=== PATIENT | male | born 1975 | race Caucasian/White ===

== ENCOUNTER 2024-08-08 07:46 | Outpatient (CLI) | payer BC, SELFPAY ==
[2024-08-08 08:11] LABS: Basophils Absolute Auto 0.05 K/mm3 (0.00-0.10); Eosinophils Absolute Auto 0.22 K/mm3 (0.02-0.50); Eosinophils Percent Auto 4.4 % (1.0-6.0); Hematocrit 41.4 % (40.0-54.0); Hemoglobin 14.1 g/dL (14.0-18.0); Immature Granulocyte Absolute 0.01 K/mm3 (0.00-0.00); Immature Granulocyte Percent A 0.2 % (0.0-0.0); Lymphocytes Absolute Auto 2.01 K/mm3 (1.10-4.50); Lymphocytes Percent Auto 39.8 % (18.0-42.0); Mean Corpuscular HGB Conc 34.1 g/dL (32-36); Mean Corpuscular Hemoglobin 30.7 pg (27.0-31.0); Mean Platelet Volume 9.8 fl (8.7-11.0); Monocytes Absolute Auto 0.39 K/mm3 (0.10-0.90); Monocytes Percent Auto 7.7 % (2.0-11.0); Neutrophils Absolute Auto 2.37 K/mm3 (1.70-7.20); Neutrophils Percent Auto 46.9 % (50.0-70.0); Platelet Count Result 225 K/mm3 (150-420); Red Cell Distribution Width 12.7 % (11.6-14.4); White Blood Count 5.1 K/mm3 (4.8-10.8)
[2024-08-08 08:42] LABS: Alanine Aminotransferase 30 U/L (6-50); Alkaline Phosphatase 54 U/L (38-126); Anion Gap 3 mmol/L (4-12); Aspartate Amino Transferase 33 U/L (17-59); Bilirubin,Total 0.7 mg/dL (0.2-1.3); Blood Urea Nitrogen 16 mg/dL (9-20); Carbon Dioxide 26 mmol/L (22-30); Chloride 111 mmol/L (98-107); Cholesterol 188 mg/dL (0-200); Estimated Glomerular Filt Rate > 60; Glucose 89 mg/dL (65-110); HDL Direct 69 mg/dL; LDL Cholesterol Calculated 108 mg/dL (<130); Osmolality Calculated 290 mOsm/kg (285-295); Potassium 4.3 mmol/L (3.4-5.0); Sodium 140 mmol/L (137-145); Total Protein 6.7 g/dL (6.3-8.2); Triglycerides 54 mg/dL (<150)
== END 2024-08-08 07:47 | disposition home or self-care (01) ==
LOC: CHSLAB 07:47
PROVIDERS: PCP Family Medicine; Visit Provider Family Medicine
DX: Z00.00 Encounter for general adult medical examination without abnormal findings (principal); E03.9 Hypothyroidism, unspecified
CPT/HCPCS: 36415; 80053; 80061; 84443; 85025

== ENCOUNTER 2024-08-25 15:02 | Outpatient (NON) | payer BC, SELFPAY ==
--- NOTE | 2024-08-25 | S_PTH ---
PATIENT: Rufino Goodman LOC: [facility]#:[id number] AGE/SX: 49/M ROOM: RE08/25/[address]: Jourdan Mills DO : 1975 BED: DIS: 08/25/2024 SPEC #: [id number] RECD: 08/25/24 17:42 STATUS: PAMELA ANGUIANO #: [id number] GILBERT: 08/25/24 00:[address]: Jourdan Mills DEPT: [facility] Surgical RECD BY: Renita Bernard MLT, ([facility]) Tissues: A - Skin Bx Procedures: Hematoxylin and Eosin Stain Gross and Microscopic Level 4
--- OUTSIDE RECORDS SUMMARY | 2024-08-25 15:06 | XMS_ITS | Clinical Summary ---
Author Organization [facility] [place] [address] Address [address] [place] [address] Care Team Providers Care Manager Nursing Home Name Role Phone Alisson Deluca MD Primary Care Provider [phone] Allergies No known active allergies Medications methylPREDNISolon e (MEDROL DOSEPACK) 4 mg tabletIndications :Cough with fever,Mild intermittent asthma without complication,Bron chitis Take as directed on package. 21 tablet 7 Active Active Problems Problem Noted Date Diagnosed Date Mild intermittent asthma without complication Bronchitis 02/08/2017 Assessment & Plan (02/08/2017 4:48 PM RN ICU): Take your antibiotic as directed You may take a cough suppressant to calm your cough (dayquil, delsym, or nyquil) If your cough is productive or you have tight chest congestion with thick mucus- you can use a cough expectorant like Mucinex Benadryl/Zyrtec can be used to dry up a runny nose along with a nasal spray like azelastine or mometasone.. The use of Chlorpheniramine (antihistamine) plus pseudoephedrine (decongestant) has been proven to be helpful. Avoid environmental triggers and allergen Drink plenty of fluids and get plenty of rest Tylenol/Motrin for pain/fever If you are not better in the next 5 days, follow up w PCP. Surgical History Surgery Date Site/Laterality Comments CARPAL TUNNEL RELEASE Medical History Medical History Date Comments Asthma Social History Tobacco Use Types Packs/Day Years Used Date Smoking Tobacco: Never Smokeless Tobacco: Never Personal Safety Answer Date Recorded Getting School Help Needed Not on file 05/03 Sex and Gender Information Value Date Recorded Sex Assigned at Not on file Legal Sex Male 5:04 PM RN ICU Gender Identity Not on file Sexual Orientation Not on file Obstetrics History Last Filed Vital Signs Vital Sign Reading Time Taken Comments Blood Pressure 112/70 02/08/2017 4:00 PM RN ICU Pulse 68 02/08/2017 4:00 PM RN ICU Temperature 36.6 C (97.9 F) 02/08/2017 4:00 PM RN ICU Respiratory Rate 19 02/08/2017 4:00 PM RN ICU Oxygen Saturation 98% 02/08/2017 4:00 PM RN ICU Inhaled Oxygen Concentration - - Weight 73 kg (161 lb) 02/08/2017 4:00 PM RN ICU Height 167.6 cm (5' 6) 02/08/2017 4:00 PM RN ICU Body Mass Index 25.99 02/08/2017 4:00 PM RN ICU Plan of Treatment Not on file Insurance [facility] Care Teams Manager Nursing Home Relationship Specialty Start Date End Date Alisson Deluca MD [address] [place] [address] PCP - General Surgery 02/08/17
--- OUTSIDE RECORDS SUMMARY | 2024-08-25 15:06 | XMS_ITS | Referral Summary ---
Author Organization [facility] [place] [address] Address [address] [place] [address] Care Team Providers Care Medical Tech Name Role Phone Alisson Deluca MD Primary Care Provider [phone] Allergies No known active allergies Medications methylPREDNISolon e (MEDROL DOSEPACK) 4 mg tabletIndications :Cough with fever,Mild intermittent asthma without complication,Bron chitis Take as directed on package. 21 tablet 7 Active Active Problems Problem Noted Date Diagnosed Date Mild intermittent asthma without complication Bronchitis 02/08/2017 Assessment & Plan (02/08/2017 4:48 PM [employer] FIELD PERSON): Take your antibiotic as directed You may [...] next 5 days, follow up w PCP. Social History Tobacco Use Types Packs/Day Years Used Date Smoking Tobacco: Never Smokeless Tobacco: Never Personal Safety Answer Date Recorded Getting School Help Needed Not on file 05/03 Sex and Gender Information Value Date Recorded Sex Assigned at Not on file Legal Sex Male 5:04 PM [employer] FI[employer] PERSON Gender Identity Not on file Sexual Orientation Not on file Last Filed Vital Signs Vital Sign Reading Time Taken Comments Blood Pressure 112/70 02/08/2017 4:00 PM [employer] FIELD PERSON Pulse 68 02/08/2017 4:00 PM ARE[employer] FIELD PERSON Temperature 36.6 C (97.9 F) 02/08/2017 4:00 PM AREA FIELD PERSON Respiratory Rate 19 02/08/2017 4:00 PM AREA FIELD PERSON Oxygen Saturation 98% 02/08/2017 4:00 PM AREA FIELD PERSON Inhaled Oxygen Concentration - - Weight 73 kg (161 lb) 02/08/2017 4:00 PM AREA FIELD PERSON Height 167.6 cm (5' 6) 02/08/2017 4:00 PM ARE[employer] FIELD PERSON Body Mass Index 25.99 02/08/2017 4:00 PM AREA FIELD PERSON Plan of Treatment Not on file Insurance [facility] Care Teams Medical Tech Relationship Specialty Start Date End Date Alisson Deluca MD [address] [place] [address] PCP - General Surgery 02/08/17
== END 2024-08-25 15:03 | disposition home or self-care (01) ==
LOC: CHSLAB 15:04
PROVIDERS: PCP Family Medicine; Visit Provider Family Medicine
DX: L82.1 Other seborrheic keratosis (principal)
CPT/HCPCS: 88305

== ENCOUNTER 2024-09-14 01:44 | Day surgery (SDC) | payer BC, SELFPAY ==
[2024-09-01 13:46] VITALS: BMI 26.6
--- OUTSIDE RECORDS SUMMARY | 2024-09-14 01:46 | XMS_ITS | Data Portability ---
Author Organization [facility] Address [address] [facility] [place] [address] Care Team Providers Care Business Information Analyst Name Role Phone PAULINO ORTIZ Primary Care Provider Assessment No assessment recorded. Plan of Treatment Reminders Order Date Submit Date Provider Last Modified By Organization Details Last Modified Time Details Appointments None recorded. Lab CBC 2022 023 [facility], [address], [place], [address], 3 06:15:30 CMP, serum or plasma 2022 023 [facility], [address], [place], [address], 3 06:15:29 lipid panel, serum 2022 023 [facility], [address], [place], [address], 3 06:15:28 CBC 2020 021 [facility], [address], [place], [address], 1 09:09:47 CMP, serum or plasma 2020 021 [facility], [address], [place], [address], 1 09:09:46 lipid panel, serum 2020 021 [facility], [address], [place], [address], 1 09:09:47 HbA1c (hemoglobi n A1c), blood 2020 021 [place] In-Office Order, Internal Use Only DO Not Attach Compendium DO Not Attach Compendium, Do Not Delete/merge, [id number] 1 11:28:16 CBC 2016 017 [facility], [address] [place] [address], [address], [place], [address], 7 07:12:06 CMP, serum or plasma 2016 017 [facility], [address] [place] [address], [address], [place], [address], 7 07:12:07 lipid panel, serum 2016 017 [facility], [address] [place] [address], [address], [place], [address], 7 07:12:07 Referral None recorded. Procedures None recorded. Surgeries None recorded. Imaging None recorded. Medication Orders levalbuter ol HFA 45 mcg/actuat ion aerosol inhaler 2022 023 [id number], [address] [place], [address], 3 10:32:56 Xopenex HFA 45 mcg/actuat ion aerosol inhaler 2020 021 [facility], [address] [place] [address], [address], 1 10:51:33 Keflex 500 mg capsule 2017 018 [facility], [address] [place] [address], [address], 10:34:21 fluconazol e 200 mg tablet 2017 018 [facility], [address] [place] [address], [address], 10:34:24 Patient TargetsNo targets recorded. Patient Instructions Encounter Date Encounter Id Patient Instructions Last Modified By Organization Details Last Modified Time 08/20/2016 [id number] will come back . jnanney Not available 08/20/2016 16:28:14 06/03/2017 [id number] Urinary Tract Infections (UTI) in Men: Care Instructions jnanney Not available 06/03/2017 17:02:09 05/21/2022 [id number] A healthy lifestyle: care instructions jnanney Not available 05/21/2022 10:32:54 Reason for Referral None Reported. Results Created Date Observation Date Name Description Value Unit Range Abnormal Flag Note LastModifiedBy Organization Detail LastModifiedTime 08/23/19 17 08/23/2016 CBC WBC 5.3 x10e3 /uL 3.4-10 .8 Not Available [facility] ([facility]) [address] [place], [address], 08/23/2016 07:12:06 08/23/19 17 08/23/2016 CBC RBC 4.86 x10e6 /uL 4.14-5 .80 Not Available [facility] ([facility]) [address] [place], [address], 08/23/2016 07:12:06 08/23/19 17 08/23/2016 CBC hemoglobin 15.2 g/dL 12.6-1 7.7 Not Available [facility] ([facility]) [address] [place], [address], 08/23/2016 07:12:06 08/23/19 17 08/23/2016 CBC hematocrit 43.9 % 37.5-5 1.0 Not Available [facility] ([facility]) [address] [place], [address], 08/23/2016 07:12:06 08/23/19 17 08/23/2016 CBC MCV 90 fL 79-97 Not Available [facility] ([facility]) [address] [place], [address], 08/23/2016 07:12:06 08/23/19 17 08/23/2016 CBC MCH 31.3 pg 26.6-3 3.0 Not Available [facility] ([facility]) [address], [place], [address], 08/23/2016 07:12:06 08/23/19 17 08/23/2016 CBC MCHC 34.6 g/dL 31.5-3 5.7 Not Available [facility] ([facility]) [address], [place], [address], 08/23/2016 07:12:06 08/23/19 17 08/23/2016 CBC RDW 13.4 % 12.3-1 5.4 Not Available [facility] ([facility]) [address], [place], [address], 08/23/2016 07:12:06 08/23/19 17 08/23/2016 CBC platelets 262 x10e3 /uL 150-37 9 Not Available [facility] ([facility]) [address], [place], [address], 08/23/2016 07:12:06 08/23/19 17 08/23/2016 CBC neutrophils 56 % Not Avai lable [facility] ([facility]) [address] [place], [address], 08/23/2016 07:12:06 08/23/19 17 08/23/2016 CBC lymphs 33 % Not Available [facility] ([facility]) [address] [place], [address], 08/23/2016 07:12:06 08/23/19 17 08/23/2016 CBC monocytes 8 % Not Availa ble [facility] ([facility]) [address] [place], [address], 08/23/2016 07:12:06 08/23/19 17 08/23/2016 CBC eos 2 % Not Available [facility] ([facility]) [address] [place], [address], 08/23/2016 07:12:06 08/23/19 17 08/23/2016 CBC basos 1 % Not Available [facility] ([facility]) [address] [place], [address], 08/23/2016 07:12:06 08/23/19 17 08/23/2016 CBC immature cells ASSISTANT DESIGNER Not Available [facility] ([facility]) [address], [place], [address], 08/23/2016 07:12:06 08/23/19 17 08/23/2016 CBC neutrophils (absolute) 3.0 x10e3 /uL 1.4-7. 0 Not Available [facility] ([facility]) [address] [place], [address], 08/23/2016 07:12:06 08/23/19 17 08/23/2016 CBC lymphs (absolute) 1.8 x10e3 /uL 0.7-3. 1 Not Available [facility] ([facility]) [address] [place], [address], 08/23/2016 07:12:06 08/23/19 17 08/23/2016 CBC monocytes(ab solute) 0.4 x10e3 /uL 0.1-0. 9 Not Available [facility] ([facility]) [address] [place], [address], 08/23/2016 07:12:06 08/23/19 17 08/23/2016 CBC eos (absolute) 0.1 x10e3 /uL 0.0-0. 4 Not Available [facility] ([facility]) [address] [place], [address], 08/23/2016 07:12:06 08/23/19 17 08/23/2016 CBC baso (absolute) 0.0 x10e3 /uL 0.0-0. 2 Not Available [facility] ([facility]) [address], [address], 08/23/2016 07:12:06 08/23/19 17 08/23/2016 CBC immature granulocytes 0 % Not Available [facility] ([facility]) [address] [place], [address], 08/23/2016 07:12:06 08/23/19 17 08/23/2016 CBC immature grans (abs) 0.0 x10e3 /uL 0.0-0. 1 Not Available [facility] ([facility]) [address] [place], [address], 08/23/2016 07:12:06 08/23/19 17 08/23/2016 CBC NRBC ASSISTANT DESIGNER Not Available [facility] ([facility]) [address] [place], [address], 08/23/2016 07:12:06 08/23/19 17 08/23/2016 CBC hematology comments: ASSISTANT DESIGNER Not Available [facility] ([facility]) [address] [place], [address], 08/23/2016 07:12:06 08/23/19 17 08/23/2016 CMP, serum or plasm a glucose, serum 96 mg/dL 65-99 Not Available [facility] ([facility]) [address] [place], [address], 08/23/2016 07:12:07 08/23/19 17 08/23/2016 CMP, serum or plasm a BUN 23 mg/dL 6-24 Not Available [facility] ([facility]) [address], [place], [address], 08/23/2016 07:12:07 08/23/19 17 08/23/2016 CMP, serum or plasm a creatinine, serum 0.83 mg/dL 0.76-1 .27 Not Available [facility] ([facility]) [address] [place], [address], 08/23/2016 07:12:07 08/23/19 17 08/23/2016 CMP, serum or plasm a eGFR if nonafricn AM 108 mL/mi n/1.7 3 >59 Not Available [facility] ([facility]) [address] [place], [address], 08/23/2016 07:12:07 08/23/19 17 08/23/2016 CMP, serum or plasm a eGFR if africn AM 125 mL/mi n/1.7 3 >59 Not Available [facility] ([facility]) [address] [place], [address], 08/23/2016 07:12:07 08/23/19 17 08/23/2016 CMP, serum or plasm a BUN/creatini ne ratio 28 9-20 above high normal Not Available [facility] ([facility]) [address], [place], [address], 08/23/2016 07:12:07 08/23/19 17 08/23/2016 CMP, serum or plasm a sodium, serum 142 mmol/ L 134-14 4 Not Available [facility] ([facility]) [address] [place], [address], 08/23/2016 07:12:07 08/23/19 17 08/23/2016 CMP, serum or plasm a potassium, serum 5.0 mmol/ L 3.5-5. 2 Not Available [facility] ([facility]) [address] [place], [address], 08/23/2016 07:12:07 08/23/19 17 08/23/2016 CMP, serum or plasm a chloride, serum 103 mmol/ L 96-106 Not Available [facility] ([facility]) [address] [place], [address], 08/23/2016 07:12:07 08/23/19 17 08/23/2016 CMP, serum or plasm a carbon dioxide, total 24 mmol/ L 18-29 Not Available [facility] ([facility]) [address] [place], [address], 08/23/2016 07:12:07 08/23/19 17 08/23/2016 CMP, serum or plasm a calcium, serum 9.8 mg/dL 8.7-10 .2 Not Available [facility] ([facility]) [address] [place], [address], 08/23/2016 07:12:07 08/23/19 17 08/23/2016 CMP, serum or plasm a protein, total, serum 7.5 g/dL 6.0-8. 5 Not Available [facility] ([facility]) [address] [place], [address], 08/23/2016 07:12:07 08/23/1908/23/2016 CMP, serum or plasm a albumin, serum 4.7 g/dL 3.5-5. 5 Not Available [facility] ([facility]) [address] [place], [address], 08/23/2016 07:12:07 08/23/1908/23/2016 CMP, serum or plasm a globulin, total 2.8 g/dL 1.5-4. 5 Not Available [facility] ([facility]) [address] [place], [address], 08/23/2016 07:12:07 08/23/1908/23/2016 CMP, serum or plasm a A/G ratio 1.7 1.2-2. 2 Not Available [facility] ([facility]) [address] [place], [address], 08/23/2016 07:12:07 08/23/19 17 08/23/2016 CMP, serum or plasm a bilirubin, total 0.4 mg/dL 0.0-1. 2 Not Available [facility] ([facility]) [address] [place], [address], 08/23/2016 07:12:07 08/23/19 17 08/23/2016 CMP, serum or plasm a alkaline phosphatase, S 57 IU/L 39-117 Not Available [facility] ([facility]) [address] [place], [address], 08/23/2016 07:12:07 08/23/19 17 08/23/2016 CMP, serum or plasm a AST (SGOT) 27 IU/L 0-40 Not Available [facility] ([facility]) [address] [place], [address], 08/23/2016 07:12:07 08/23/19 17 08/23/2016 CMP, serum or plasm a ALT (SGPT) 25 IU/L 0-44 Not Available [facility] ([facility]) [address] [place], [address], 08/23/2016 07:12:07 08/23/19 17 08/23/2016 lipid panel , serum cholesterol, total 169 mg/dL 100-19 9 Not Available [facility] ([facility]) [address] [place], [address], 08/23/2016 07:12:07 08/23/19 17 08/23/2016 lipid panel , serum triglyceride s 61 mg/dL 0-149 Not Available [facility] ([facility]) [address] [place], [address], 08/23/2016 07:12:07 08/23/19 17 08/23/2016 lipid panel , serum HDL cholesterol 70 mg/dL >39 Not Available [facility] ([facility]) [address] [place], [address], 08/23/2016 07:12:07 08/23/19 17 08/23/2016 lipid panel , serum VLDL cholesterol anita 12 mg/dL 5-40 Not Available [facility] ([facility]) [address] [place], [address], 08/23/2016 07:12:07 08/23/19 17 08/23/2016 lipid panel , serum LDL cholesterol calc 87 mg/dL 0-99 Not Available [facility] ([facility]) [address] [place], [address], 08/23/2016 07:12:07 08/23/19 17 08/23/2016 lipid panel , serum comment: ASSISTANT DESIGNER Not Available [facility] ([facility]) [address] [place], [address], 08/23/2016 07:12:07 08/23/19 17 08/23/2016 lipid panel , serum LDL/HDL ratio 1.2 ratio _unit s 0.0-3. 6 LDL/H DL RATIO MEN WOMEN 1/2 AVG.R ISK 1.0 1.5 AVG.R ISK 3.6 3.2 2X AVG.R ISK 6.2 5.0 3X AVG.R ISK 8.0 6.1 Not Available [facility] ([facility]) [address] [place], [address], 08/23/2016 07:12:07 08/23/19 17 08/23/2016 cardi ovasc ular asses sment panel , serum interpretati on NOTE SUPPL EMENT REPOR T IS AVAIL ABLE. Not Available [facility] ([facility]) [address] [place], [address], 08/23/2016 07:12:08 08/23/19 17 08/23/2016 cardi ovasc ular asses sment panel , serum pdf image . Not Available [facility] ([facility]) [address] [place], [address], 08/23/2016 07:12:08 02/14/20 21 02/14/2021 COMP. METAB OLIC PANEL (14) glucose 87 mg/dL 65-99 Not Available [facility] ([facility]) [address] [place], [address], 02/14/2021 09:09:46 02/14/20 21 02/14/2021 COMP. METAB OLIC PANEL (14) BUN 15 mg/dL 6-24 Not Available [facility] ([facility]) [address] [place], [address], 02/14/2021 09:09:46 02/14/20 21 02/14/2021 COMP. METAB OLIC PANEL (14) creatinine 0.91 mg/dL 0.76-1 .27 Not Available [facility] ([facility]) [address] [place], [address], 02/14/2021 09:09:46 02/14/20 21 02/14/2021 COMP. METAB OLIC PANEL (14) eGFR if nonafricn AM 100 mL/mi n/1.7 3 >59 Not Available [facility] ([facility]) [address] [place], [address], 02/14/2021 09:09:46 02/14/20 21 02/14/2021 COMP. METAB OLIC PANEL (14) eGFR if africn AM 116 mL/mi n/1.7 3 >59 In accor dance with recom menda tions from the NKF-A SN Task force , [facility] is in the proce ss of updat ing its eGFR calcu latio n to the 2020 CKD-E PI creat inine equat ion that estim ates kidne y funct ion witho ut a race varia ble. Not Available [facility] ([facility]) [address] [place], [address], 02/14/2021 09:09:46 02/14/20 21 02/14/2021 COMP. METAB OLIC PANEL (14) BUN/creatini ne ratio 16 9-20 Not Available [facility] ([facility]) [address] [place], [address], 02/14/2021 09:09:46 02/14/20 21 02/14/2021 COMP. METAB OLIC PANEL (14) sodium 140 mmol/ L 134-14 4 Not Available [facility] ([facility]) [address] [place], [address], 02/14/2021 09:09:46 02/14/20 21 02/14/2021 COMP. METAB OLIC PANEL (14) potassium 4.5 mmol/ L 3.5-5. 2 Not Available [facility] ([facility]) [address] [place], [address], 02/14/2021 09:09:46 02/14/20 21 02/14/2021 COMP. METAB OLIC PANEL (14) chloride 103 mmol/ L 96-106 Not Available [facility] ([facility]) [address] [place], [address], 02/14/2021 09:09:46 02/14/20 21 02/14/2021 COMP. METAB OLIC PANEL (14) carbon dioxide, total 24 mmol/ L 20-29 Not Available [facility] ([facility]) [address] [place], [address], 02/14/2021 09:09:46 02/14/20 21 02/14/2021 COMP. METAB OLIC PANEL (14) calcium 9.7 mg/dL 8.7-10 .2 Not Available [facility] ([facility]) [address] [place], [address], 02/14/2021 09:09:46 02/14/20 21 02/14/2021 COMP. METAB OLIC PANEL (14) protein, total 7.0 g/dL 6.0-8. 5 Not Available [facility] ([facility]) [address], [place], [address], 02/14/2021 09:09:46 02/14/20 21 02/14/2021 COMP. METAB OLIC PANEL (14) albumin 4.7 g/dL 4.0-5. 0 Not Available [facility] ([facility]) [address], [place], [address], 02/14/2021 09:09:46 02/14/20 21 02/14/2021 COMP. METAB OLIC PANEL (14) globulin, total 2.3 g/dL 1.5-4. 5 Not Available [facility] ([facility]) [address], [place], [address], 02/14/2021 09:09:46 02/14/20 21 02/14/2021 COMP. METAB OLIC PANEL (14) A/G ratio 2.0 1.2-2. 2 Not Available [facility] ([facility]) [address], [place], [address], 02/14/2021 09:09:46 02/14/20 21 02/14/2021 COMP. METAB OLIC PANEL (14) bilirubin, total 0.4 mg/dL 0.0-1. 2 Not Available [facility] ([facility]) [address], [place], [address], 02/14/2021 09:09:46 02/14/20 21 02/14/2021 COMP. METAB OLIC PANEL (14) alkaline phosphatase 66 IU/L 44-121 Ple ase note refer ence inter luciano leonidas e Not Available [facility] ([facility]) [address], [place], [address], 02/14/2021 09:09:46 02/14/20 21 02/14/2021 COMP. METAB OLIC PANEL (14) AST (SGOT) 20 IU/L 0-40 Not Available [facility] ([facility]) [address], [place], [address], 02/14/2021 09:09:46 02/14/20 21 02/14/2021 COMP. METAB OLIC PANEL (14) ALT (SGPT) 25 IU/L 0-44 Not Available [facility] ([facility]) [address], [place], [address], 02/14/2021 09:09:46 02/14/20 21 02/14/2021 CBC, PLATE LET, NO DIFFE RENTI AL WBC 5.4 x10e3 /uL 3.4-10 .8 Not Available [facility] ([facility]) [address], [place], [address], 02/14/2021 09:09:47 02/14/20 21 02/14/2021 CBC, PLATE LET, NO DIFFE RENTI AL RBC 4.74 x10e6 /uL 4.14-5 .80 Not Available [facility] ([facility]) [address], [place], [address], 02/14/2021 09:09:47 02/14/20 21 02/14/2021 CBC, PLATE LET, NO DIFFE RENTI AL hemoglobin 14.7 g/dL 13.0-1 7.7 Not Available [facility] ([facility]) [address], [place], [address], 02/14/2021 09:09:47 02/14/20 21 02/14/2021 CBC, PLATE LET, NO DIFFE RENTI AL hematocrit 42.4 % 37.5-5 1.0 Not Available [facility] ([facility]) [address], [place], [address], 02/14/2021 09:09:47 02/14/20 21 02/14/2021 CBC, PLATE LET, NO DIFFE RENTI AL MCV 90 fL 79-97 Not Available [facility] ([facility]) [address], [place], [address], 02/14/2021 09:09:47 02/14/20 21 02/14/2021 CBC, PLATE LET, NO DIFFE RENTI AL MCH 31.0 pg 26.6-3 3.0 Not Available [facility] ([facility]) [address], [place], [address], 02/14/2021 09:09:47 02/14/20 21 02/14/2021 CBC, PLATE LET, NO DIFFE RENTI AL MCHC 34.7 g/dL 31.5-3 5.7 Not Available [facility] ([facility]) [address], [place], [address], 02/14/2021 09:09:47 02/14/2002/14/2021 CBC, PLATE LET, NO DIFFE RENTI AL RDW 12.9 % 11.6-1 5.4 Not Available [facility] ([facility]) [address], [place], [address], 02/14/2021 09:09:47 02/14/2002/14/2021 CBC, PLATE LET, NO DIFFE RENTI AL platelets 260 x10e3 /uL 150-45 0 Not Available [facility] ([facility]) [address], [place], [address], 02/14/2021 09:09:47 02/14/20 21 02/14/2021 CBC, PLATE LET, NO DIFFE RENTI AL NRBC ASSISTANT DESIGNER Not Available [facility] ([facility]) [address], [place], [address], 02/14/2021 09:09:47 02/14/20 21 02/14/2021 LIPID PANEL cholesterol, total 202 mg/dL 100-19 9 above high normal Not Available [facility] ([facility]) [address] [place], [address], 02/14/2021 09:09:47 02/14/20 21 02/14/2021 LIPID PANEL triglyceride s 78 mg/dL 0-149 Not Available [facility] ([facility]) [address] [place], [address], 02/14/2021 09:09:47 02/14/20 21 02/14/2021 LIPID PANEL HDL cholesterol 76 mg/dL >39 Not Available [facility] ([facility]) [address] [place], [address], 02/14/2021 09:09:47 02/14/20 21 02/14/2021 LIPID PANEL VLDL cholesterol anita 14 mg/dL 5-40 Not Available [facility] ([facility]) [address] [place], [address], 02/14/2021 09:09:47 02/14/20 21 02/14/2021 LIPID PANEL LDL chol calc ([facility]) 112 mg/dL 0-99 above high normal Not Available [facility] ([facility]) [address] [place], [address], 02/14/2021 09:09:47 02/14/20 21 02/14/2021 LIPID PANEL comment: ASSISTANT DESIGNER Not Available [facility] ([facility]) [address], [place], [address], 02/14/2021 09:09:47 02/14/20 21 02/14/2021 CARDI OVASC ULAR REPOR T interpretati on Note Suppl ement al repor t is avail able. Not Available [facility] ([facility]) [address] [place], [address], 02/14/2021 09:09:48 02/14/20 21 02/14/2021 CARDI OVASC ULAR REPOR T pdf . Not Available [facility] ([facility]) [address] [place], [address], 02/14/2021 09:09:48 02/14/20 21 02/13/2021 HbA1c (hemo globi n A1c), blood HbA1c 5.3 Not Available In-Office Order Internal Use Only DO Not Attach Compendium DO Not Attach Compendium, Do Not Delete/merge, [id number] 02/13/2021 10:50:43 05/22/19 23 05/21/2022 LIPID PANEL cholesterol, total 196.4 mg/dL 140.0- 200.0 Not Available [facility] ([facility]) [address] [place], [address], 05/22/2022 06:15:28 05/22/19 23 05/21/2022 LIPID PANEL triglyceride s 68 mg/dL <=150 Not Available [facility] ([facility]) [address] [place], [address], 05/22/2022 06:15:28 05/22/19 23 05/21/2022 LIPID PANEL HDL cholesterol 63.7 mg/dL 40.0-1 00.0 Not Available [facility] ([facility]) [address] [place], [address], 05/22/2022 06:15:28 05/22/19 23 05/21/2022 LIPID PANEL VLDL cholesterol anita 13.60 mg/dL 5.00-4 0.00 Not Available [facility] ([facility]) [address] [place], [address], 05/22/2022 06:15:28 05/22/19 23 05/21/2022 LIPID PANEL LDL chol calc ([facility]) 120.3 Not Available [facility] ([facility]) [address] [place], [address], 05/22/2022 06:15:28 05/22/19 23 05/21/2022 COMP. METAB OLIC PANEL (14) glucose 96 mg/dL 65-99 ANION GP 20.0 mmol/ L N OSMOL 282.0 mOsM/ L N REFER ENCE RANGE : 275.0 -301. 0 Not Available [facility] ([facility]) [address] [place], [address], 05/22/2022 06:15:29 05/22/19 23 05/21/2022 COMP. METAB OLIC PANEL (14) BUN 21 mg/dL 8-26 Not Available [facility] ([facility]) [address] [place], [address], 05/22/2022 06:15:29 05/22/19 23 05/21/2022 COMP. METAB OLIC PANEL (14) creatinine 0.84 mg/dL 0.50-1 .40 Not Available [facility] ([facility]) [address] [place], [address], 05/22/2022 06:15:29 05/22/19 23 05/21/2022 COMP. METAB OLIC PANEL (14) eGFR 107 mL/mi n/1.7 3 >=60 Not Available [facility] ([facility]) [address] [place], [address], 05/22/2022 06:15:29 05/22/19 23 05/21/2022 COMP. METAB OLIC PANEL (14) BUN/creatini ne ratio 24.9 Not Available [facility] ([facility]) [address] [place], [address], 05/22/2022 06:15:29 05/22/19 23 05/21/2022 COMP. METAB OLIC PANEL (14) sodium 140.0 mmol/ L 136.0- 144.0 Not Available [facility] ([facility]) [address] [place], [address], 05/22/2022 06:15:29 05/22/19 23 05/21/2022 COMP. METAB OLIC PANEL (14) potassium 4.3 mmol/ L 3.5-5. 3 Not Available [facility] ([facility]) [address] [place], [address], 05/22/2022 06:15:29 05/22/19 23 05/21/2022 COMP. METAB OLIC PANEL (14) chloride 100 mmol/ l 101-11 1 below low normal Not Available [facility] ([facility]) [address] [place], [address], 05/22/2022 06:15:29 05/22/19 23 05/21/2022 COMP. METAB OLIC PANEL (14) carbon dioxide, total 24.0 mmol/ L 21.0-3 2.0 Not Available [facility] ([facility]) [address] [place], [address], 05/22/2022 06:15:29 05/22/19 23 05/21/2022 COMP. METAB OLIC PANEL (14) calcium 9.8 mg/dL 8.2-10 .0 Not Available [facility] ([facility]) [address] [place], [address], 05/22/2022 06:15:29 05/22/19 23 05/21/2022 COMP. METAB OLIC PANEL (14) protein, total 7.3 g/dL 6.7-8. 2 Not Available [facility] ([facility]) [address] [place], [address], 05/22/2022 06:15:29 05/22/19 23 05/21/2022 COMP. METAB OLIC PANEL (14) albumin 4.6 g/dL 3.5-5. 5 Not Available [facility] ([facility]) [address] [place], [address], 05/22/2022 06:15:29 05/22/19 23 05/21/2022 COMP. METAB OLIC PANEL (14) globulin, total 2.7 g/dL 1.5-4. 5 Not Available [facility] ([facility]) [address], [place], [address], 05/22/2022 06:15:29 05/22/19 23 05/21/2022 COMP. METAB OLIC PANEL (14) A/G ratio 1.7 Not Available [facility] ([facility]) [address], [place], [address], 05/22/2022 06:15:29 05/22/19 23 05/21/2022 COMP. METAB OLIC PANEL (14) bilirubin, total 0.5 mg/dL 0.0-1. 2 Not Available [facility] ([facility]) [address] [place], [address], 05/22/2022 06:15:29 05/22/19 23 05/21/2022 COMP. METAB OLIC PANEL (14) alkaline phosphatase 63.4 IU/L 42.0-1 21.0 Not Available [facility] [facility] [address], [place], [address], 05/22/2022 06:15:29 05/22/19 23 05/21/2022 COMP. METAB OLIC PANEL (14) AST (SGOT) 24.2 U/L 10.0-4 2.0 Not Available [facility] ([facility]) [address], [place], [address], 05/22/2022 06:15:29 05/22/19 23 05/21/2022 COMP. METAB OLIC PANEL (14) ALT (SGPT) 25.2 U/L 10.0-6 0.0 Not Available [facility] ([facility]) [address], [place], [address], 05/22/2022 06:15:29 05/22/19 23 05/21/2022 CBC, PLATE LET, NO DIFFE RENTI AL WBC 5.8 K/uL 3.4-10 .8 Not Available [facility] ([facility]) [address] [place], [address], 05/22/2022 06:15:30 05/22/19 23 05/21/2022 CBC, PLATE LET, NO DIFFE RENTI AL RBC 5.0 M/uL 4.5-6. 3 Not Available [facility] ([facility]) [address], [place], [address], 05/22/2022 06:15:30 05/22/1905/21/2022 CBC, PLATE LET, NO DIFFE RENTI AL hemoglobin 15.1 g/dL 13.5-1 7.5 Not Available [facility] ([facility]) [address] [place], [address], 05/22/2022 06:15:30 05/22/1905/21/2022 CBC, PLATE LET, NO DIFFE RENTI AL hematocrit 44.9 % 40.0-5 2.0 Not Available [facility] ([facility]) [address] [place], [address], 05/22/2022 06:15:30 05/22/1905/21/2022 CBC, PLATE LET, NO DIFFE RENTI AL MCV 91 fL 80-95 Not Available [facility] ([facility]) [address] [place], [address], 05/22/2022 06:15:30 05/22/1905/21/2022 CBC, PLATE LET, NO DIFFE RENTI AL MCH 30 pg 27-32 Not Available [facility] ([facility]) [address] [place], [address], 05/22/2022 06:15:30 05/22/1905/21/2022 CBC, PLATE LET, NO DIFFE RENTI AL MCHC 34 g/dL 32-36 Not Available [facility] ([facility]) [address] [place], [address], 05/22/2022 06:15:30 05/22/19 23 05/21/2022 CBC, PLATE LET, NO DIFFE RENTI AL RDW 12.6 % 11.5-1 4.5 Not Available [facility] ([facility]) [address], [place], [address], 05/22/2022 06:15:30 05/22/19 23 05/21/2022 CBC, PLATE LET, NO DIFFE RENTI AL platelets 284 K/uL 155-37 9 MPV 10.2 FL 8.9-1 2.7 N Not Available [facility] ([facility]) [address], [place], [address], 05/22/2022 06:15:30 05/22/19 23 05/21/2022 CBC, PLATE LET, NO DIFFE RENTI AL NRBC 0 % Not Available [facility] ([facility]) [address], [place], [address], 05/22/2022 06:15:30 05/22/19 23 05/22/2022 CARDI OVASC ULAR REPOR T interpretati on Note Suppl ement al repor t is avail able. Not Available [facility] ([facility]) [address], [place], [address], 05/22/2022 06:15:29 05/22/19 23 05/22/2022 CARDI OVASC ULAR REPOR T pdf . Not Available [facility] ([facility]) [address], [place], [address], 05/22/2022 06:15:29 Result Notes None recorded. Problems Name Problem SNOMED Code Status Onset Date Resolution Date Notes Provider Name and Address Organization Details Recorded Time Asthma 172239251 Active 021 Paulino Ortiz PA-C Attn: Accounting ,[address], [place], [address] , [facility] 02/13/2021 10:48:53 Problem Notes None recorded. Procedures Surgical History Date Name Laterality Status Provider Name and Address Organization Details Recorded Time Eye Surgery completed Dalia Monroy MA [facility] 08/20/2016 15:55:10 Carpal tunnel surgery completed Diana Brunner MA [facility] 02/13/2021 10:36:00 Imaging Results None recorded. Procedure Notes None recorded. Medical Equipment None Reported. Allergies No known drug allergies Medications Name Sig Start Date Stop Date Status Note LastModified by Organization Details LastModified Time fluconazole 200 mg tablet Take 1 tablet every 72 hours by oral route. 02/13 completed Not Available Not Available Not Available cephalexin 500 mg capsule Take 1 capsule 3 times a day by oral route for 10 days. 02/13 completed Not Available Not Available Not Available levalbuterol HFA 45 mcg/actuatio n aerosol inhaler INHALE 2 PUFFS BY MOUTH EVERY 6 HOURS NEEDED active Not Available Not Available No t Available Vitals Date Recorded Body weight Oxygen saturation Oxygen saturation in Arterial blood by Pulse oximetry Heart rate Body temperature Body height Body mass index (BMI) Systolic And Diastolic Provider Name and Address Organization Details Last Updated DateTime 3 74821.1 1 g 98 % 98 % 96 /min 98.6 [degF] 157.99 cm 30.7 kg/m2 117/80 mm[Hg] Shy tellez MA [facility] 3 10:22:18 Date Recorded Body height Body mass index (BMI) Body weight Oxygen saturation Oxygen saturation in Arterial blood by Pulse oximetry Heart rate Systolic And Diastolic Provider Name and Address Organization Details Last Updated DateTime 8 167.64 cm 27.5 kg/m2 26219.8 6 g 97 % 97 % 67 /min 112/78 mm[Hg] Christine Bautista MA [facility] 8 16:41:00 Date Recorded Body weight Body height Body mass index (BMI) Oxygen saturation Oxygen saturation in Arterial blood by Pulse oximetry Heart rate Systolic And Diastolic Provider Name and Address Organization Details Last Updated DateTime 7 44319.8 2 g 167.64 cm 26.1 kg/m2 97 % 97 % 64 /min 118/80 mm[Hg] Dalia Monroy MA [facility] 7 16:02:33 Date Recorded Body temperature Oxygen saturation Oxygen saturation in Arterial blood by Pulse oximetry Heart rate Body height Body mass index (BMI) Body weight Systolic And Diastolic Provider Name and Address Organization Details Last Updated DateTime 1 98.7 [degF] 96 % 96 % 102 /min 166.37 cm 27.2 kg/m2 13832.6 8 g 100/76 mm[Hg] Diana Brunner MA [facility] 1 10:38:12 Social History Question Answer Notes LastModified by [employer] Details LastModified Time Tobacco Smoking Status Never Smoker Dalia Monroy MA null, [place] - [facility] 08/20/2016 15:57:34 Are You Blind Or Do You Have Difficulty Seeing? No Information not available 05/21/2022 What Is Your Level Of Caffeine Consumption? Occasional Information not available 02/13/2021 In The 14 Days Before Symptom Onset, Have You Had Close Contact With A Laboratory-confir med COVID-19 While That Case Was Ill? No Information not available 02/13/2021 In The 14 Days Before Symptom Onset, Have You Had Close Contact With A Person Who Is Under Investigation For COVID-19 While That Person Was Ill? No Information not available 02/13/2021 Have You Been To An Area Known To Be High Risk For COVID-19? No Information not available 02/13/2021 Are You Deaf Or Do You Have Serious Difficulty Hearing? No Information not available 05/21/2022 What Type Of Diet Are You Following? REGULAR Information not available 02/13/2021 What Was The Date Of Your Most Recent Tobacco Screening? 05/21/2022 Information not available 05/21/2022 What Is Your Relationship Status? Information not available 02/13/2021 Do You Have Smoke And Carbon Monoxide Detectors In Your Home? Yes Information not available 02/13/2021 Are You Passively Exposed To Smoke? No Information no t available 02/13/2021 Has Tobacco Cessation Counseling Been Provided? No Information not available 02/13/2021 Sex: Unknown Functional Status Question Answer Note LastModified by [employer] Details LastModified Time Do you use any illicit or recreational drugs? No Information not available 02/13/2021 Do you or have you ever used any other forms of tobacco or nicotine? No Information not available 02/13/2021 What is your level of alcohol consumption? None Information not available 02/13/2021 Are you currently employed? Yes Information not available 02/13/2021 Are you able to care for yourself independently? 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 None Information not available 05/21/2022 Mental Status Question Answer Note LastModified by Organization D etails LastModified Time Do you feel stressed (tense, restless, nervous, or anxious, or unable to sleep at night)? [id number] Information not available 05/21/2022 Family History Relationship Description Onset Age of this Age Resolved Age Notes LastModified by Organization Details LastModified Time Mother Coronary arterioscler osis [email or web address] Not available 04/2016 15:55:35 Mother Depressive disorder [email or web address] Not available 04/2016 15:55:47 Mother Diabetes mellitus [email or web address] Not available 04/2016 15:56:01 Mother Heart disease [email or web address] Not available 04/2016 15:56:13 Mother Hypertensive disorder [email or web address] Not available 04/2016 15:56:32 Mother Hypercholest erolemia [email or web address] Not available 04/2016 15:57:05 Mother Kidney disease [email or web address] Not available 04/2016 15:57:20 Father Hypertensive disorder [email or web address] Not available 04/2016 15:56:23 Father Hypercholest erolemia [email or web address] Not available 04/2016 15:56:58 Medical History Condition Response Coronary Artery Disease N Other N Atrial Fibrillation N High Blood Pressure N Thyroid Problems N Kidney or Bladder Problems N Depression N COPD N Blood Clots N GI Problems N Skin Problems N Eating Disorder N Anemia N Heart Attack ([place]) N Diabetes N Anxiety Disorder N Muscle, Joint, or Bone Problems N Seizures/Epilepsy N Acid Reflux (GERD) N Cancer N Stroke N Allergies N Asthma Y ADHD N Substance Abuse N High Cholesterol N Hepatitis N Liver Disease N Schizophrenia N Headaches N Osteoporosis N Heart Failure N Immunizations Vaccine Type Date Status Note Provider Nam e and Address Organization Details Recorded Time influenza, unspecified formulation 9 completed Not Available [facility] 03/21/2019 02:11:47 COVID-19, mRNA, LNP-S, PF, 100 mcg/0.5mL dose or 50 mcg/0.25mL dose 1 completed Leticia kendall [place] - [facility] 07/29/2020 09:10:24 COVID-19, mRNA, LNP-S, PF, 100 mcg/0.5mL dose or 50 mcg/0.25mL dose 1 completed Leticia kendall [place] - [facility] 07/29/2020 09:10:58 influenza, intradermal, quadrivalent, preservative free 1 completed SENA Osborn, [place] - [facility] 12/02/2020 15:32:40 Tdap 7 completed Not Available [facility] 03/07/2019 02:43:10 Past Encounters Encounter ID Performer Location Encounter Start Date Encounter Closed Date Diagnosis/Indication Diagnosis SNOMED-CT Code Diagnosis ICD10 Code Diagnosis Note [id number] MD Brittney Sol [facility] [address] [place] [address] 08/20/2016 15:42:14 08/20/2016 16:51:33 Adult health examination 647837837 Z00.00 [id number] MD Brittney Sol [facility] [address] [place] [address] 06/03/2017 16:25:11 06/03/2017 17:22:41 Urinary tract infectious disease 08392885 N10 Candidal balanitis 31305 007 B37.42 [id number] FLORENTIN Vasques [address] [place] [address] 02/13/2021 10:25:53 02/14/2021 10:39:51 Mild intermittent asthma 144412291 J45.20 [id number] FLORENTIN Vasques [address] [place] [address] 05/21/2022 10:17:40 05/22/2022 10:28:32 Moderate persistent asthma 223866201 J45.40 Overweight 220366002 E66 .3 Health Concerns Section Related Observation LastModified by Organization Detai ls LastModified Time None Recorded Concern Status LastModified by Organization Details LastModified Time None Recorded Advance Directives Directive None Recorded Payers Insurance Date Sequence Insurance Name Policy Number Policy Polanco Covered Member ID Polanco Member ID Guarantor Name 08/07/2024 1 [employer] (PPO) [id number] Rufino Goodman [id number] Rufino Goodman 05/18/2022 1 [facility] [id number] Rufino Goodman [id number] Rufino Goodman 02/13/2021 1 [facility] ([facility] [id number] Rufino Goodman [id number] Rufino Goodman Notes Date Note Type Note Provider Name and Address Organization Details Recorded Time 08/20/2016 text/html ROS as noted in the HPI family hx of bp and diabetes. wants checked out. needs tdap Paulino Ortiz PA-C Attn: Accounting[address] [place], [place], [address] [place] [address], [facility] 08/20/2016 16:36:58 06/03/2017 text/html ROS as noted in the HPI connelly when he urinates. tried to urinate and could not provide a sample. said he is red on the glans. Paulino Ortiz PA-C Attn: Accounting, [address] [place], [place], [address] [place] [address], [facility] 06/03/2017 17:08:36 02/13/2021 text/html ROS as noted in the HPI needs a check up...no issues except for some occassional asthma flares Paulino Ortiz PA-C Attn: Accounting[address] [place], [place], [address] [place] [address], [facility] 02/13/2021 10:52:03 05/21/2022 text/html ROS as noted in the HPI not seen in 2 years ...needs labs and refill Levalbuterol Paulino Ortiz PA-C Attn: Accounting[address] [place], [address], [facility] 05/21/2022 10:33:31
--- OUTSIDE RECORDS SUMMARY | 2024-09-14 01:46 | XMS_ITS | Referral Summary ---
Author Organization [facility] [address] Address [address] [place] [address] Care Team Providers Care Box Icer Name Role Phone Alisson Deluca MD Primary Care Provider [phone] Allergies No known active allergies Medications methylPREDNISolon e (MEDROL DOSEPACK) 4 mg tabletIndications :Cough with fever,Mild intermittent asthma without complication,Bron chitis Take as directed on package. 21 tablet 7 Active Active Problems Problem Noted Date Diagnosed Date Mild intermittent asthma without complication Bronchitis 02/08/2017 Assessment & Plan (02/08/2017 4:48 PM LAUNDRY CLERK): Take your antibiotic as directed You may [...] on file Legal Sex Male 5:04 PM LAUNDRY CLERK Gender Identity Not on file Sexual Orientation Not on file Last Filed Vital Signs Vital Sign Reading Time Taken Comments Blood Pressure 112/70 02/08/2017 4:00 PM LAUNDRY CLERK Pulse 68 02/08/2017 4:00 PM LAUNDRY CLERK Temperature 36.6 C (97.9 F) 02/08/2017 4:00 PM LAUNDRY CLERK Respiratory Rate 19 02/08/2017 4:00 PM LAUNDRY CLERK Oxygen Saturation 98% 02/08/2017 4:00 PM LAUNDRY CLERK Inhaled Oxygen Concentration - - Weight 73 kg (161 lb) 02/08/2017 4:00 PM LAUNDRY CLERK Height 167.6 cm (5' 6) 02/08/2017 4:00 PM LAUNDRY CLERK Body Mass Index 25.99 02/08/2017 4:00 PM LAUNDRY CLERK Plan of Treatment Not on file Insurance [facility] Care Teams Box Icer Relationship Specialty Start Date End Date Alisson Deluca MD [address] [place] [address] PCP - General Surgery 02/08/17
--- OUTSIDE RECORDS SUMMARY | 2024-09-14 01:46 | XMS_ITS | Clinical Summary ---
Author Organization [facility] [address] Address [address] [place] [address] Care Team Providers Care Assistant Professor Of Physics Name Role Phone Alisson Deluca MD Primary Care Provider Allergies No known active allergies Medications methylPREDNISolon e (MEDROL DOSEPACK) 4 mg tabletIndications :Cough with fever,Mild intermittent asthma without complication,Bron chitis Take as directed on package. 21 tablet 7 Active Active Problems Problem Noted Date Diagnosed Date Mild intermittent asthma without complication Bronchitis 02/08/2017 Assessment & Plan (02/08/2017 4:48 PM RESIDENTIAL SALES CONSULTANT): Take your antibiotic as directed You may [...] on file Legal Sex Male 5:04 PM RESIDENTIAL SALES CONSULTANT Gender Identity Not on file Sexual Orientation Not on file Obstetrics History Last Filed Vital Signs Vital Sign Reading Time Taken Comments Blood Pressure 112/70 02/08/2017 4:00 PM RESIDENTIAL SALES CONSULTANT Pulse 68 02/08/2017 4:00 PM RESIDENTIAL SALES CONSULTANT Temperature 36.6 C (97.9 F) 02/08/2017 4:00 PM RESIDENTIAL SALES CONSULTANT Respiratory Rate 19 02/08/2017 4:00 PM RESIDENTIAL SALES CONSULTANT Oxygen Saturation 98% 02/08/2017 4:00 PM RESIDENTIAL SALES CONSULTANT Inhaled Oxygen Concentration - - Weight 73 kg (161 lb) 02/08/2017 4:00 PM RESIDENTIAL SALES CONSULTANT Height 167.6 cm (5' 6) 02/08/2017 4:00 PM RESIDENTIAL SALES CONSULTANT Body Mass Index 25.99 02/08/2017 4:00 PM RESIDENTIAL SALES CONSULTANT Plan of Treatment Not on file Insurance [facility] Care Teams Assistant Professor Of Physics Relationship Specialty Start Date End Date Alisson Deluca MD [address] [place] [address] PCP - General Surgery 02/08/17
[2024-09-14 08:08] VITALS: BP 119/75; PULSE 66; RESP 16; TEMP 36.2; O2SAT 100; BMI 26.5
[2024-09-14] MEDS: LACTATED RINGERS 1,000 ML 150 ML IV CONT (08:26)
--- NOTE | 2024-09-14 08:41 | P.PNAN_ITS ---
Anes - Initial Pre Proc Eval Procedure: Operation Date: 09/14/24 09:15 Proposed Procedures p Screening Colonoscopy - Cesar Butcher DO Date/Time: 09/14/24 08:41 Surgeon: Cesar Butcher DO Pre Op Diagnosis: Neoplasm screening Patient Data Age: 49 Gender: M Height: 1.68 m Weight: 74.5 kg Last Vital Signs Temp 36.2 C L 09/14/24 08:08 Pulse 66 09/14/24 08:08 Resp 16 09/14/24 08:08 BP 119/75 09/14/24 08:08 Pulse Ox 100 09/14/24 08:08 O2 Del Method Room Air 09/14/24 08:08 Allergies Allergy/AdvReac Type Severity Reaction Status Date / Time No Known Allergies Allergy Verified 09/14/24 08:14 Home Medications ?Medication ?Instructions ?Recorded ?Confirmed ?Type levalbuterol tartrate 45 2 inh inhalation Q6H #15 grams 08/06/24 09/14/24 Rx mcg/actuation aerosol inhaler Patient hx anesthesia problems: none Family hx anesthesia problems: none Results Review: All pre-operative results and documents have been reviewed as part of the pre- operative evaluation. [facility] Surgical History Surgical History History of carpal tunnel surgery of left wrist Family History Family History Mother Diabetes mellitus Kidney disease Social History Social History Smoking status: Current every day smoker Alcohol intake: never Substance use: never Substance use type: does not use Living arrangements: with family Occupation/Education: occupation Gender identity (if verbalized by the patient): Male Spiritual care concerns: No Anes - Eval Final PreProcedure Day of Procedure 09/14/24 08:41 Patient weight: overweight Heart: regular rate and rhythm Lungs: decreased breath sounds Airway: Mallampati scale class II Neurological: alert and oriented Last oral intake: >/= 8 hours ASA classification: II Emergent: no Anesthetic plan: proceed Anesthesia type and monitoring: general GIVS and standard monitoring Results Review: All pre-operative results and documents have been reviewed as part of the pre- operative evaluation. Informed Consent: The patient's anesthetic plan and its attendant risks and benefits were discussed with the patient/family/POA. Questions were solicited and answers provided to the satisfaction of the patient/family/POA.
--- NOTE | 2024-09-14 08:47 | P.HP_ITS ---
H&P: HPI History of Present Illness Date/Time: 09/14/24 08:47 Chief Complaint: positive Cologuard test Narrative: this is a 49-year-old man who presents for colonoscopy. He recently had a positive Cologuard test. He denies any hematochezia or melena. He has never had a colonoscopy before. He denies family history of colon cancer. Review of Systems Review of Systems: All systems reviewed & are unremarkable except as noted in HPI and below Constitutional: Constitutional: Denies chills, Denies fever(s), Denies headache(s) and Denies weight loss Eyes: Eyes: Denies change in vision ENT: Denies dizziness, Denies headache(s), Denies neck mass and Denies throat swelling Cardiovascular: Cardiovascular: Denies chest pain, Denies lightheadedness and Denies dyspnea Respiratory: Respiratory: Denies cough, Denies dyspnea and Denies wheezing Gastrointestinal: Gastrointestinal: Denies abdominal pain, Denies change in bowel habits, Denies nausea and Denies vomiting Genitourinary: Genitourinary: Denies hematuria and Denies dysuria Musculoskeletal: Musculoskeletal: Reports as per HPI Integumentary/Breasts: Skin/Breast: Reports as per HPI Neurologic: Denies dizziness and Denies headache(s) Allergic/Immunologic: Allergic/Immunologic: Denies throat swelling and Denies wheezing PMFSH Surgical History Surgical History History of carpal tunnel surgery of left wrist Family History Family History Mother Diabetes mellitus Kidney disease Social History Social History Smoking status: Current every day smoker Alcohol intake: never Substance use: never Substance use type: does not use Living arrangements: with family Occupation/Education: occupation Gender identity (if verbalized by the patient): Male Spiritual care concerns: No Meds Home Medications and Allergies Home Medications ?Medication ?Instructions ?Recorded ?Confirmed ?Type levalbuterol tartrate 45 2 inh inhalation Q6H #15 grams 08/06/24 09/14/24 Rx mcg/actuation aerosol inhaler Allergies Allergy/AdvReac Type Severity Reaction Status Date / Time No Known Allergies Allergy Verified 09/14/24 08:14 Vital Signs Vital Signs - 24 hr 09/14/24 08:08 Temperature 97.1 F L Pulse Rate 66 Respiratory Rate 16 Blood Pressure 119/75 Pulse Oximetry 100 Oxygen Delivery Room Air Exam Const: General: no acute distress and alert Orientation/consciousness: patient oriented x3 HENMT: Head: normocephalic and atraumatic Ears: hearing grossly normal bilaterally Face/Nose/Sinus: Normal nares present Mouth: Yes Normal oral and palatal mucosa present Eyes: Periorbital: periorbital findings normal Sclera: sclerae normal EOM: EOMs intact bilaterally Neck: Neck: normal visual inspection, no lymphadenopathy and trachea midline Chest: Chest palpation & inspection: normal inspection of the chest Resp: Effort & Inspection: normal respiratory effort Auscultation: clear to auscultation bilaterally Cardio: Jugular venous distension: no JVD Rate: regular rate Rhythm: regular rhythm Heart sounds: S1 normal heart sound present and S2 normal heart sound present Peripheral pulses: Peripheral pulses 2+ throughout GI: Inspection: normal to inspection GI Palp: Yes Soft to palpation, No Tenderness to palpation present (GI), No Guarding due to palpation present (GI) and No Rebound tenderness present Percussion: Yes normal to percussion Auscultation: normal bowel sounds : General: Yes no CVA tenderness Back/Spine/Pelvis: Back: no CVA tenderness Neuro: General: patient oriented x3, no focal motor deficits and CN's II-XI intact bilaterally Cognition (Neuro): normal cognition Speech: normal speech Motor exam (neuro): 5/5 motor strength present throughout Extrem: General: capillary refill normal and no clubbing, cyanosis or edema Assessment and Plan Assessment and plan (1) Positive colorectal cancer screening using Cologuard test: Code(s): R19.5 - Other fecal abnormalities Status: Acute Assessment and Plan: I have recommended colonoscopy. I have discussed the procedure, risks, benef its, and alternatives. Questions were answered. Patient is agreeable to proceed.
--- NOTE | 2024-09-14 09:01 | S_PTH ---
PATIENT: Rufino Goodman LOC: [facility] U#:[id number] AGE/SX: 49/M ROOM: RE09/14/[address]: Cesar Butcher DO : 1975 BED: DIS: 09/14/2024 SPEC #: [id number] RECD: 09/14/24 11:13 STATUS: PAMELA REQ #: [id number] GILBERT: 09/14/24 09:[address]: Cesar Butcher DEPT: [facility] Surgical RECD BY: Milla Smart ENTERED: 09/14/24 11:14 SP TYPE: Surgical OTHR DR: Jourdan Mills DO Tissues: A - Colon Polypectomy Procedures: Hematoxylin and Eosin Stain Gross and Microscopic Level 4
[2024-09-14 09:03] VITALS: BP 80/40; PULSE 62; RESP 15; O2SAT 97
[2024-09-14 09:13] VITALS: BP 90/50; PULSE 64; RESP 21; O2SAT 99
[2024-09-14 09:23] VITALS: BP 101/59; PULSE 54; RESP 14; O2SAT 98
== END 2024-09-14 09:34 | disposition home or self-care (01) ==
PROVIDERS: PCP Family Medicine; Visit Provider Surgery
PROC: 0DJD8ZZ Inspection of Lower Intestinal Tract, Via Natural or Artificial Opening Endoscopic (ICD-10-PCS; CPT 45378; principal; 2024-09-14 09:15)
DX: R19.5 Other fecal abnormalities (principal); K62.1 Rectal polyp; F17.200 Nicotine dependence, unspecified, uncomplicated
CPT/HCPCS: 45380; 88305; J2704; J7120

== ENCOUNTER 2024-09-16 15:05 | Outpatient (NON) | payer BC, SELFPAY ==
--- NOTE | 2024-09-16 | S_PTH ---
PATIENT: Rufino Goodman LOC: [facility]#:[id number] AGE/SX: 49/M ROOM: RE09/16/[address]: Jourdan Mills DO : 1975 BED: DIS: 09/16/2024 SPEC #: [id number] RECD: 09/16/24 15:42 STATUS: PAMELA REVicente #: [id number] GILBERT: 09/16/24 00:[address]: Jourdan Mills DEPT: [facility] Surgical RECD BY: Renita Bernard MLT, ([facility]) Tissues: A - Skin Bx Procedures: Hematoxylin and Eosin Stain Gross and Microscopic Level 4
--- OUTSIDE RECORDS SUMMARY | 2024-09-16 15:11 | XMS_ITS | Clinical Summary ---
Author Organization [facility] [address] [place] [address] Care Team Providers Care Hoisting Machine Operator Name Role Phone Alisson Deluca MD Primary Care Provider [phone] Allergies No known active allergies Medications methylPREDNISolon e (MEDROL DOSEPACK) 4 mg tabletIndications :Cough with fever,Mild intermittent asthma without complication,Bron chitis Take as directed on package. 21 tablet 7 Active Active Problems Problem Noted Date Diagnosed Date Mild intermittent asthma without complication Bronchitis 02/08/2017 Assessment & Plan (02/08/2017 4:48 PM HEAD PUMPER): Take your antibiotic as directed You may [...] on file Legal Sex Male 5:04 PM HEAD PUMPER Gender Identity Not on file Sexual Orientation Not on file Obstetrics History Last Filed Vital Signs Vital Sign Reading Time Taken Comments Blood Pressure 112/70 02/08/2017 4:00 PM HEAD PUMPER Pulse 68 02/08/2017 4:00 PM HEAD PUMPER Temperature 36.6 C (97.9 F) 02/08/2017 4:00 PM HEAD PUMPER Respiratory Rate 19 02/08/2017 4:00 PM HEAD PUMPER Oxygen Saturation 98% 02/08/2017 4:00 PM HEAD PUMPER Inhaled Oxygen Concentration - - Weight 73 kg (161 lb) 02/08/2017 4:00 PM HEAD PUMPER Height 167.6 cm (5' 6) 02/08/2017 4:00 PM HEAD PUMPER Body Mass Index 25.99 02/08/2017 4:00 PM HEAD PUMPER Plan of Treatment Not on file Insurance [employer] Care Teams Hoisting Machine Operator Relationship Specialty Start Date End Date Alisson Deluca MD [address] [place] [address] PCP - General Surgery 02/08/17
--- OUTSIDE RECORDS SUMMARY | 2024-09-16 15:11 | XMS_ITS | Referral Summary ---
Author Organization [facility] [place] [address] [place] [address] Care Team Providers Care Music Worker Name Role Phone Alisson Deluca MD Primary Care Provider [phone] Allergies No known active allergies Medications methylPREDNISolon e (MEDROL DOSEPACK) 4 mg tabletIndications :Cough with fever,Mild intermittent asthma without complication,Bron chitis Take as directed on package. 21 tablet 7 Active Active Problems Problem Noted Date Diagnosed Date Mild intermittent asthma without complication Bronchitis 02/08/2017 Assessment & Plan (02/08/2017 4:48 PM FORENSIC ECONOMIST): Take your antibiotic as directed You may [...] on file Legal Sex Male 5:04 PM FORENSIC ECONOMIST Gender Identity Not on file Sexual Orientation Not on file Last Filed Vital Signs Vital Sign Reading Time Taken Comments Blood Pressure 112/70 02/08/2017 4:00 PM FORENSIC ECONOMIST Pulse 68 02/08/2017 4:00 PM FORENSIC ECONOMIST Temperature 36.6 C (97.9 F) 02/08/2017 4:00 PM FORENSIC ECONOMIST Respiratory Rate 19 02/08/2017 4:00 PM FORENSIC ECONOMIST Oxygen Saturation 98% 02/08/2017 4:00 PM FORENSIC ECONOMIST Inhaled Oxygen Concentration - - Weight 73 kg (161 lb) 02/08/2017 4:00 PM FORENSIC ECONOMIST Height 167.6 cm (5' 6) 02/08/2017 4:00 PM FORENSIC ECONOMIST Body Mass Index 25.99 02/08/2017 4:00 PM FORENSIC ECONOMIST Plan of Treatment Not on file Insurance [employer] Care Teams Music Worker Relationship Specialty Start Date End Date Alisson Deluca MD [address] [place] [address] PCP - General Surgery 02/08/17
== END 2024-09-16 15:06 | disposition home or self-care (01) ==
LOC: CHSLAB 15:06
PROVIDERS: PCP Family Medicine; Visit Provider Family Medicine
DX: C44.319 Basal cell carcinoma of skin of other parts of face (principal)
CPT/HCPCS: 88305